=== PATIENT | male | born 1950 | race Asian ===

== ENCOUNTER 2018-03-16 17:33 | Emergency (ER) | payer BC, OTHER ==
[~2018-03-16] VITALS: Ht 162.6 cm; Wt 86.2 kg
[2018-03-16 17:33] VITALS: BP 145/93
[2018-03-16] MEDS ORDERED: TDAP [DIPH/PERTUSSIS/TET] 0.5 ML VIAL IM ONE ×2 (18:30→19:26)
--- NOTE | 2018-03-16 19:30 | NUR ---
Pt BIBWIFE S/P GLF C/O LEFT ELBOW SWELLING AND LEFT SHOULDER PAIN. Pt IS A/OX4, VERBAL, ABLE TO MAKE NEEDS KNOWN. NO S/S OF ACUTE DISTRESS OR SOB NOTED. Pt WAITING COMFORTABLY IN BED. WILL CARRY OUT ORDERS AND CONTINUE TO MONITOR Pt.
--- NOTE | 2018-03-16 19:35 | NUR ---
ADMINISTERED TDAP VAC ON LT DELTOID. LOT #: [id number]. EXP 11/20/18.
--- NOTE | 2018-03-16 19:51 | NUR ---
Patient discharged to home in stable condition. Written and verbal after care instructions given. Patient verbalizes understanding of instruction. Received sling for left arm. Patient left facility on foot with at side. Pt's will be driving pt back home. Pt walked with steady gait. No s/s of acute distress or sob noted. No IV access on pt. ID band removed.
== END 2018-03-16 20:04 | disposition home or self-care (01) ==
LOC: ER 17:33
DX: S80.01XA Contusion of right knee, initial encounter (principal); S50.02XA Contusion of left elbow, initial encounter; S49.82XA Other specified injuries of left shoulder and upper arm, initial encounter; I10 Essential (primary) hypertension; E11.9 Type 2 diabetes mellitus without complications; E78.00 Pure hypercholesterolemia, unspecified; Z23 Encounter for immunization; W18.09XA Striking against other object with subsequent fall, initial encounter; Y93.89 Activity, other specified; Y92.89 Other specified places as the place of occurrence of the external cause; Y99.8 Other external cause status
CPT/HCPCS: 73030-TC; 73080-TC; 90715

== ENCOUNTER 2022-01-30 11:41 | Inpatient (IN) | payer OTHER ==
[~2022-01-30] VITALS: Ht 162.6 cm; Wt 83.5 kg
[2022-01-30 12:23] LABS: BASOPHILS % (AUTO) 0.6 % (0.0-2.0); EOSINOPHILS % (AUTO) 4.2 % (0.0-6.0); HEMATOCRIT 42 % (39-51); HEMOGLOBIN 13.8 g/dL (13.5-17.5); LYMPHOCYTES # (AUTO) 1.5 K/uL (0.8-4.8); LYMPHOCYTES % (AUTO) 26.3 % (20.0-44.0); MEAN CORPUSCULAR HGB CONC 33 g/dl (31.0-36.0); MEAN CORPUSCULAR VOLUME 94 fL (80-96); MONOCYTES # (AUTO) 0.5 K/uL (0.1-1.30); MONOCYTES % (AUTO) 8.6 % (2.0-12.0); NEUTROPHILS # (AUTO) 3.3 K/uL (1.8-8.9); NEUTROPHILS % (AUTO) 60.3 % (43.0-81.0); PLATELET COUNT (AUTO) 205 K/uL (150-450); RED BLOOD CELL COUNT(AUTO) 4.49 MIL/uL (4.5-6.0); WHITE BLOOD COUNT (AUTO) 5.5 K/uL (4.3-11.0)
--- NOTE | 2022-01-30 12:40 | NUR ---
MOVE SHEET SUBMITTED.
[2022-01-30] MEDS ORDERED: GLIM4TAB37 PO (12:42)
[2022-01-30] MEDS ORDERED: CARV12.52 PO (12:42)
[2022-01-30] MEDS ORDERED: VALS160T29 PO (12:42)
[2022-01-30] MEDS ORDERED: METF-442 PO (12:42)
[2022-01-30] MEDS ORDERED: ATOR40TA PO (12:42)
[2022-01-30 13:07] LABS: CALCIUM, SERUM 8.9 mg/dL (8.5-10.1); CARBON DIOXIDE 30 mmol/L (21-32); CHLORIDE 103 mmol/L (98-107); CREATININE 1.6 mg/dL (0.6-1.3); GLUCOSE 193 mg/dL (74-106); SODIUM SERUM 142 mmol/L (136-145); UREA NITROGEN, BLOOD 19 mg/dL (7-18)
--- NOTE | 2022-01-30 13:25 | NUR ---
Spoke to [place] corrections caseworker Megan. Information provided as requested Clinicals faxed to [phone]
[2022-01-30] MEDS ORDERED: ASPIRIN 81 MG TAB.CHEW PO ONE (13:30)
--- NOTE | 2022-01-30 13:30 | NUR ---
Family concerned about sBP- 160/90. notified w/o any orders. Family updated
--- NOTE | 2022-01-30 13:39 | NUR ---
[facility] CALLED NO BEDS AVAILABLE AT THIS TIME [phone] FAX IS [phone] HALLMAN CALLS BACK.
[2022-01-30] MEDS ORDERED: ASPIRIN 81 MG TAB.CHEW ONE (13:42)
--- NOTE | 2022-01-30 14:02 | NUR ---
CALLED DR. HALLMAN
--- NOTE | 2022-01-30 14:11 | NUR ---
GOT BED 319
--- NOTE | 2022-01-30 14:22 | NUR ---
COVID SPECIMEN COLLECTED AND SENT TO LAB.
--- NOTE | 2022-01-30 14:24 | NUR ---
CALLED DR. HALLMAN X2
--- NOTE | 2022-01-30 14:30 | NUR ---
DR. HALLMAN SPEAKING WITH DR. SCHWARTZ.
--- NOTE | 2022-01-30 14:30 | NUR ---
CONTACTED CARDIOLOGY TO CALL US BACK.
--- NOTE | 2022-01-30 14:43 | NUR ---
Report given to COURTNEY Hoff. NO acute changes NO obvious distress. Both pt and spouse aware of plan of care
[2022-01-30] MEDS ORDERED: *INSULIN REGULAR(HUMULIN R)HUM 100 UNIT/ML VIAL SQ PRN (15:30)
[2022-01-30] MEDS ORDERED: DEXTROSE 50%-WATER 50 ML DISP.SYRIN IV PRN (15:30)
[2022-01-30] MEDS ORDERED: ACETAMINOPHEN 650 MG/20.3 ML UDC NG PRN (15:30)
--- NOTE | 2022-01-30 16:10 | NUR ---
MS RN NOTE RECEIVED PATIENT FROM ER, PATIENT TRANSPORTED ON A GURNEY ACCOMPANIED BY 2 NURSES. PATIENT TRANSFERRED TO BED WITH MINIMAL ASSISTANCE. PATIENT IS ALERT AND ORIENTED X 4, ACCOMPANIED BY AT BEDSIDE. PATIENT ON ROOM AIR, WITH EQUAL AND UNLABORED BREATHING. ON MODERATE TO HIGH BACK REST. WITH IV ACCESS ON THE RIGHT FOREARM G 20, PATENT AND INTACT. IN STABLE CONDITION. PATIENT ORIENTED REGARDING ADMISSION AND ADMISSION ORDERS. MD NOTIFIED OF ADMISSION. SAFETY MEASURE IN PLACE. BED IN LOWEST AND LOCKED POSITION. SIDE RAILS UP X4, CALL LIGHT PLACED WITHIN EASY REACH. WILL CONTINUE WITH PLAN OF CARE.
[2022-01-30] MEDS: IV 1/2NS 1000 ML 1,000 ML IV PRN (16:22)
[2022-01-30] MEDS ORDERED: CARVEDILOL 12.5 MG TABLET PO SCH (17:00)
[2022-01-30] MEDS: BLOOD SUGAR DIAGNOSTIC 1 EACH STRIP VI SCH ×2 (17:13→21:37)
[2022-01-30] MEDS: CARVEDILOL 12.5 MG TABLET PO SCH (17:13)
--- NOTE | 2022-01-30 19:02 | NUR ---
MS RN CLOSING NOTE PATIENT IS ALERT AND ORIENTED X 4, ACCOMPANIED BY AT BEDSIDE. PATIENT ON ROOM AIR, WITH EQUAL AND UNLABORED BREATHING. ON MODERATE TO HIGH BACK REST. WITH IV ACCESS ON THE RIGHT FOREARM G 20, WITH 1/2 NS RUNNING AT 100 ML/HR, INFUSING WELL. IN STABLE CONDITION. PATIENT WAS SEEN BY DR. HALLMAN AND DISCUSSED PLAN OF CARE WITH PATIENT AND . VERBALIZED UNDERSTANDING AND APPRECIATION. PATIENT WAS JUST SEEN BY DR. LANG. IN STABLE CONDITION. SAFETY MEASURE IN PLACE. BED IN LOWEST AND LOCKED POSITION. SIDE RAILS UP X4, CALL LIGHT PLACED WITHIN EASY REACH. ENDORSED TO NEXT SHIFT FOR CONTINUITY OF CARE.
--- NOTE | 2022-01-30 19:46 | NUR ---
RN OPENING NOTE; RECEIVED PATIENT IN BED AA0X4,ABLE TO MAKE NEEDS KNOWN, AT THE BEDSIDE,ADRIAN WELL ON RM AIR,NO SIGN SOB/DISTRESS NOTED,NO COMPLAIN OF PAIN/DISCOMFORT AT THIS TIME,IV ACCESS ON RAC 20G ON GOING 1/2NS @100ML/HR ADRIAN WELL,NO SIGN INFILTRATION OR REDNESS NOTED,SAFETY MEASURE IN PLACE,CALL LIGHT WITHIN REACH,WILL CONTINUE TO MONITOR.
[2022-01-30 20:00] VITALS: BP 142/75
[2022-01-30] MEDS: AMLODIPINE BESYLATE 10 MG TABLET PO SCH (21:15)
[2022-01-30] MEDS: HEPARIN SODIUM, PORCINE 5000 UNITS/1 ML VIAL SQ SCH (21:17)
[2022-01-30] MEDS ORDERED: ZOLPIDEM TARTRATE 5 MG TABLET PO PRN (22:00)
[2022-01-30] MEDS ORDERED: ATORVASTATIN 40 MG TABLET PO SCH (22:00)
[2022-01-31 05:00] VITALS: BP 145/79
[2022-01-31] MEDS: IV 1/2NS 1000 ML 1,000 ML IV PRN (05:53)
[2022-01-31 06:15] LABS: CHOLESTEROL 144 mg/dL (<200); HDL CHOLESTEROL 41 mg/dL (40-60); LDL 78 mg/dL (0-99); TRIGLYCERIDES 199 mg/dL (30-150)
--- NOTE | 2022-01-31 06:20 | NUR ---
RN CLOSING NOTES. PATIENT IN BED AA0X4,ABLE TO MAKE NEEDS KNOWN,ADRIAN WELL ON RM AIR,NO SIGN SOB/DISTRESS NOTED,NO COMPLAINED OF PAIN/DISCOMFORT DURING SHIFT,DUE MEDS GIVEN ORDER,ALL NEEDS ATTENDED,IV ACCESS ON RAC 20G ON GOING 1/2NS @100ML/HR ADRIAN WELL,NO SIGN INFILTRATION OR REDNESS NOTED,SAFETY MEASURE IN PLACE,CALL LIGHT WITHIN REACH,WILL ENDORSED TO NEXT SHIFT.
[2022-01-31] MEDS: BLOOD SUGAR DIAGNOSTIC 1 EACH STRIP VI SCH ×3 (06:36→16:30)
[2022-01-31 07:00] VITALS: BP 148/85
--- NOTE | 2022-01-31 08:12 | NUR ---
RN OPENING NOTE- PATIENT ASLEEP IN BED, EASILY AWAKENED, AA0X4, ON RM AIR, NO SIGN SOB/DISTRESS NOTED, DENIES PAIN, IV ACCESS ON RAC 20G ON GOING 1/2NS @100ML/HR ADRIAN WELL, SAFETY MEASURES IN PLACE, CALL LIGHT WITHIN REACH, MONITOR / ASSIST
[2022-01-31] MEDS: GLIMEPIRIDE 4 MG TABLET PO SCH ×2 (09:00→09:39)
[2022-01-31] MEDS ORDERED: LOSARTAN POTASSIUM 50 MG TABLET PO SCH (09:00)
[2022-01-31] MEDS: AMLODIPINE BESYLATE 10 MG TABLET PO SCH (09:40)
[2022-01-31] MEDS: CARVEDILOL 12.5 MG TABLET PO SCH ×2 (09:42→16:24)
[2022-01-31] MEDS: HEPARIN SODIUM, PORCINE 5000 UNITS/1 ML VIAL SQ SCH (09:44)
[2022-01-31 11:59] LABS: CREATININE 1.4 mg/dL (0.6-1.3)
[2022-01-31 12:00] VITALS: BP 121/74
--- NOTE | 2022-01-31 12:25 | NUR ---
repeat kidney function test received, crea trending down. Dr. Taylor informed, qiana for CT angio. Radiology informed.
[2022-01-31] MEDS: INSULIN REGULAR, HUMAN 100 UNIT/ML 3 ML VIAL SQ PRN ×2 (12:34→16:20)
[2022-01-31] MEDS ORDERED: CT SWABBABLE VALVE TRANS SET 1 EA INFUS.SET MC ONE (12:41)
[2022-01-31] MEDS ORDERED: IV NS 0.9% 250 ML IV ONE (12:41)
[2022-01-31] MEDS ORDERED: IOHEXOL-350 100 ML VIAL IV ONE (12:41)
[2022-01-31] MEDS: METOPROLOL TARTRATE INJ 5 MG/5 ML AMPUL IVP PRN ×2 (12:55→13:00)
[2022-01-31] MEDS ORDERED: METOPROLOL TARTRATE INJ 5 MG/5 ML AMPUL ONE (13:00)
[2022-01-31] MEDS ORDERED: NITROGLYCERIN 0.4 MG/TAB BOTTLE SL ONE (13:30)
[2022-01-31 16:24] VITALS: BP 132/76
[2022-01-31] MEDS ORDERED: FURO-145 PO (16:51)
[2022-01-31] MEDS ORDERED: LOSA100T31 PO (16:51)
[2022-01-31] MEDS ORDERED: CARV25TA PO (16:51)
--- NOTE | 2022-01-31 17:49 | NUR ---
RN NOTE / DISCHARGE- PT DC AT THIS TIME HOME W FAMILY. AFTERCARE AND INSTRUCTIONS REVIEWED W FAMILY AND PT. UNDERSTOOD. IV REMOVED, ID WRISTBAND REMOVED, ESCORTED OFF UNIT BY STAFF
== END 2022-01-31 17:50 | disposition home or self-care (01) | DRG 205 ==
LOC: ER 11:51 → TELE 14:31
PROVIDERS: ADMIT Internal Medicine; ATTEND Internal Medicine
DX: M94.0 Chondrocostal junction syndrome [Tietze] (principal); N17.0 Acute kidney failure with tubular necrosis; N18.9 Chronic kidney disease, unspecified; I12.9 Hypertensive chronic kidney disease with stage 1 through stage 4 chronic kidney disease, or unspecified chronic kidney disease; E11.22 Type 2 diabetes mellitus with diabetic chronic kidney disease; E78.5 Hyperlipidemia, unspecified; Z79.84 Long term (current) use of oral hypoglycemic drugs; Z79.899 Other long term (current) drug therapy; E66.9 Obesity, unspecified; Z82.49 Family history of ischemic heart disease and other diseases of the circulatory system; Z68.31 Body mass index [BMI] 31.0-31.9, adult
CPT/HCPCS: 36415; 71045-TC; 75574; 76770-TC; 80048-TC; 80061-TC; 82565-TC; 82962-TC; 84484-TC; 84520-TC; 85025-TC; 87081-TC; 93307-TC; 93970-TC; G0378; J1644; J1815; J3490; J7042; J7050; Q9967

== ENCOUNTER 2023-09-15 09:44 | Emergency (ER) | payer BC ==
[~2023-09-15] VITALS: Ht 162.6 cm; Wt 82.6 kg
[~2023-09-15 09:44] MED LIST: ATOR40TA PO; CARV25TA PO; FURO-145 PO; GLIM4TAB37 PO; LOSA100T31 PO; METF-442 PO
[2023-09-15] MEDS ORDERED: ACETAMINOPHEN 325 MG TABLET ONE (11:34)
[2023-09-15] MEDS: ACETAMINOPHEN 325 MG TABLET PO ONE (11:37)
[2023-09-15 13:35] VITALS: BP 132/77; TEMP 98.3; O2SAT 100
== END 2023-09-15 13:36 | disposition home or self-care (01) ==
LOC: ER 09:46
DX: M25.571 Pain in right ankle and joints of right foot (principal); M25.471 Effusion, right ankle; I10 Essential (primary) hypertension; E11.9 Type 2 diabetes mellitus without complications; E78.5 Hyperlipidemia, unspecified; E78.00 Pure hypercholesterolemia, unspecified; X50.1XXA Overexertion from prolonged static or awkward postures, initial encounter; Y93.89 Activity, other specified; Y92.098 Other place in other non-institutional residence as the place of occurrence of the external cause; Y99.8 Other external cause status
CPT/HCPCS: 73610-TC; 73630-TC